=== PATIENT | male | born 1990 | race Caucasian/White ===

== ENCOUNTER 2016-08-16 21:18 | Emergency (ER) | payer SELFPAY ==
[~2016-08-16] VITALS: Ht 172.7 cm; Wt 102.1 kg
[~2016-08-16 21:18] MED LIST: ALBU17AE23 IH; ALBU8.5H2 IH; DIVA250T2 PO; DOXY100C2 PO; FLUT1DIS26 IH; LVB125NB3 IH; PRD50T PO
--- NOTE | 2016-08-16 21:30 | ED General ---
General Stated Complaint: ETOH Source of Information: EMS Exam Limitations: No Limitations History of Present Illness Time Seen by Provider: 21:25 Initial Comments To ER per EMS after [place] police called them as the patient was found [address] [address] [place] [place] wearing only his underwear and with a bloody nose. Patient reported that he been drinking 4 beers tonight and several shots of vodka and was looking for night crawlers in the rain when he tripped and fell striking his nose. He also reports that [facility] held for several days for drug charges. Patient states that tonight he was walking down the street because he has a "broken heart because he has So much love that he wants to show but doesn't know how to show it" and he was also looking for night collars in the rainsso that he could go fishing. He denies any thoughts of self-harm. He states that he's been on several psychiatric medications but stopped them yesterday when he was released from sn[facility]. Reports a history of various mental illnesses such as PTSD, paranoid schizophrenia, bipolar disorder. His medications included omeprazole, Effexor, Zyprexa, several others that he states totaled 7 medications. He also states that he is homeless and has nowhere to go. Timing/Duration: Other Severity: Moderate (unknown) Associated Systoms: Denies Symptoms Allergies and Home Medications Allergies Coded Allergies: No Known Drug Allergies (Unverified , 08/16/16) Home Medications Divalproex Sodium 250 Mg Tablet.dr, 250 MG PO BID, #60 Ref 0 Prescribed by: ADY HURT on 12/23/14 1236 Constitutional: see HPI EENTM: see HPI Respiratory: no symptoms reported Genitourinary: no symptoms reported Musculoskeletal: no symptoms reported Skin: no symptoms reported Psychiatric/Neurological: No Symptoms Reported Hematologic/Lymphatic: No Symptoms Reported Immunological/Allergic: no symptoms reported Past Qlokvdz-Sqmwzb-Cejxwa Hx Patient Social History Type Used: Cigarettes Recent Hopitalizations: No Seasonal Allergies Seasonal Allergies: No Surgeries HX Surgeries: Yes Surgeries: Adenoidectomy, Tonsillectomy Respiratory Hx Respiratory Disorders: Yes Respiratory Disorders: Asthma, COPD Cardiovascular Hx Cardiac Disorders: Yes Cardiac Disorders: Heart Murmur Neurological Hx Neurological Disorders: Yes Neurological Disorders: Seizure Disorder Genitourinary Hx Genitourinary Disorders: No Gastrointestinal Hx Gastrointestinal Disorders: No Musculoskeletal Hx Musculoskeletal Disorders: No Endocrine Hx Endocrine Disorders: No HEENT HX ENT Disorders: No Cancer Hx Cancer: No Psychosocial Hx Psychiatric Problems: Yes Behavioral Health Disorders: Anxiety, Bipolar, Schizophrenia, Depression Integumentary HX Skin/Integumentary Disorder: Yes Skin/Integumentary Disorders: Recent Skin Changes Blood Transfusions Hx Blood Disorders: No Adverse Reaction to a Blood Tr: No Family Medical History Significant Family History: No Pertinent Family Hx Physical Exam Vital Signs Vital Sign - Last 12Hours 08/16/16 21:42 Temp 97.6 Pulse 86 Resp 14 B/P (MAP) 126/82 Pulse Ox 98 O2 Delivery Room Air Capillary Refill : General Appearance: No Apparent Distress, WD/WN Eyes: Bilateral Eye EOMI, Bilateral Eye Normal Inspection, Bilateral Eye PERRL HEENT: PERRL/EOMI, TMs Normal, Other (edentulous, dried blood in nare, no septal hematoma or active bleeding. ) Neck: Full Range of Motion, Normal Inspection Respiratory: Normal Breath Sounds, No Accessory Muscle Use, No Respiratory Distress Cardiovascular: Regular Rate, Rhythm, Normal Peripheral Pulses Gastrointestinal: Non Tender, Soft Extremity: Normal Capillary Refill, Normal Inspection Neurologic/Psychiatric: Alert, Other (cooperative, somber, answers questions appropriately.) Skin: Normal Color, Warm/Dry Progress/Results/Core Measures Results/Orders Lab Results Laboratory Tests Test 08/16/16 21:28 08/16/16 21:40 Range/Units White Blood Count 7.5 4.3-11.0 10^3/uL Red Blood Count 4.51 4.35-5.85 10^6/uL Hemoglobin 13.9 13.3-17.7 G/DL Hematocrit 40 40-54 % Mean Corpuscular Volume 88 80-99 FL Mean Corpuscular Hemoglobin 31 25-34 PG Mean Corpuscular Hemoglobin Concent 35 32-36 G/DL Red Cell Distribution Width 13.0 10.0-14.5 % Platelet Count 202 130-400 10^3/uL Mean Platelet Volume 8.9 7.4-10.4 FL Neutrophils (%) (Auto) 70 42-75 % Lymphocytes (%) (Auto) 18 12-44 % Monocytes (%) (Auto) 12 0-12 % Eosinophils (%) (Auto) 1 0-10 % Basophils (%) (Auto) 0 0-10 % Neutrophils # (Auto) 5.2 1.8-7.8 X 10^3 Lymphocytes # (Auto) 1.3 1.0-4.0 X 10^3 Monocytes # (Auto) 0.9 0.0-1.0 X 10^3 Eosinophils # (Auto) 0.0 0.0-0.3 10^3/uL Basophils # (Auto) 0.0 0.0-0.1 10^3/uL Sodium Level 142 135-145 MMOL/L Potassium Level 3.5 L 3.6-5.0 MMOL/L Chloride Level 108 H 98-107 MMOL/L Carbon Dioxide Level 22 21-32 MMOL/L Anion Gap 12 5-14 MMOL/L Blood Urea Nitrogen 14 7-18 MG/DL Creatinine 0.84 0.60-1.30 MG/DL Estimat Glomerular Filtration Rate > 60 BUN/Creatinine Ratio 17 Glucose Level 99 70-105 MG/DL Calcium Level 9.5 8.5-10.1 MG/DL Total Bilirubin 1.3 H 0.1-1.0 MG/DL Aspartate Amino Transf (AST/SGOT) 122 H 5-34 U/L Alanine Aminotransferase (ALT/SGPT) 293 H 0-55 U/L Alkaline Phosphatase 87 40-136 U/L Total Protein 6.5 6.4-8.2 G/DL Albumin 4.3 3.2-4.5 G/DL Salicylates Level < 5.0 L 5.0-20.0 MG/DL Acetaminophen Level < 10 L 10-30 UG/ML Serum Alcohol 38 H <10 MG/DL Urine Color YELLOW Urine Clarity CLEAR Urine pH 5 5-9 Urine Specific [place] 1.025 H 1.016-1.022 Urine Protein 2+ H NEGATIVE Urine Glucose (UA) NEGATIVE NEGATIVE Urine Ketones 2+ H NEGATIVE Urine Nitrite NEGATIVE NEGATIVE Urine Bilirubin NEGATIVE NEGATIVE Urine Urobilinogen 4 H NORMAL MG/DL Urine Leukocyte Esterase NEGATIVE NEGATIVE Urine RBC (Auto) NEGATIVE NEGATIVE Urine RBC NONE /HPF Urine WBC RARE /HPF Urine Crystals NONE /LPF Urine Bacteria NEGATIVE /HPF Urine Casts NONE /LPF Urine Mucus NEGATIVE /LPF Urine Culture Indicated NO My Orders Orders - PATRICE PIERRE APRN Cbc With Automated Diff (08/16/16 21:23) Comprehensive Metabolic Panel (08/16/16 21:23) Ua Culture If Indicated (08/16/16 21:23) Drug Screen Stat (Urine) (08/16/16 21:23) Alcohol (08/16/16 21:23) Salicylate (08/16/16 21:23) Acetaminophen (08/16/16 21:23) Ekg Tracing (08/16/16 21:23) Ct Head/Face/Cervical Wo (08/16/16 21:23) Ns Iv 1000 Ml (Sodium Chloride 0.9%) (08/16/16 22:15) Vital Signs/I&O Vital Sign - Last 12Hours 08/16/16 21:42 Temp 97.6 Pulse 86 Resp 14 B/P (MAP) 126/82 Pulse Ox 98 O2 Delivery Room Air Departure Communication Progress Notes I called the patient's listed next of kin Paras who states he will not come get the patient because the patient has a drug problem and he doesn't want Ady in his house while he is not there. His other contact Elizabeth has a disconnected phone number. [id number]-patient has remained alert, sitting upright in bed, pleasant and talkative during his ER stay. Conversation is appropriate. No suicidal or homicidal statements. Impression Impression: Primary Impression: Elevated liver enzymes Additional Impression: Substance abuse Disposition: 01 HOME, SELF-CARE Condition: Stable Departure-Patient Inst. Decision time for Depature: 22:07 Referrals: RONAL FORBES,LOCAL PHYSICIAN (PCP) Primary Care Physician Patient Instructions: ALCOHOL AND SUBSTANCE ABUSE Add. Discharge Instructions: 1. You should follow-up with Dr. Forbes or one of her partners at [facility] to further evaluate the cause of your elevated liver enzymes. Return to ER for any concerns PATRICE PIERRE APRN August 16, 2016 21:30
[2016-08-16 21:34] LABS: BASOPHILS % (AUTO) 0 % (0-10); EOSINOPHILS % (AUTO) 1 % (0-10); LYMPHOCYTES # (AUTO) 1.3 X 10^3 (1.0-4.0); LYMPHOCYTES % (AUTO) 18 % (12-44); MEAN CORPUSCULAR HEMOGLOBIN 31 PG (25-34); MEAN CORPUSCULAR HGB CONC 35 G/DL (32-36); MEAN CORPUSCULAR VOLUME 88 FL (80-99); MEAN PLATELET VOLUME 8.9 FL (7.4-10.4); MONOCYTES # (AUTO) 0.9 X 10^3 (0.0-1.0); MONOCYTES % (AUTO) 12 % (0-12); NEUTROPHILS # (AUTO) 5.2 X 10^3 (1.8-7.8); NEUTROPHILS % (AUTO) 70 % (42-75); PLATELET COUNT 202 10^3/uL (130-400); RED BLOOD COUNT 4.51 10^6/uL (4.35-5.85); WHITE BLOOD COUNT 7.5 10^3/uL (4.3-11.0)
[2016-08-16 21:52] LABS: BILIRUBIN,URINE NEGATIVE (NEGATIVE); KETONES,URINE 2+ (NEGATIVE); LEUKOCYTE ESTERASE ,URINE NEGATIVE (NEGATIVE); NITRITE,URINE NEGATIVE (NEGATIVE); PH,URINE 5 (5-9); PROTEIN,URINE 2+ (NEGATIVE); UROBILINOGEN,URINE 4 MG/DL (NORMAL)
[2016-08-16 22:01] LABS: ALANINE AMINOTRANSFERASE 293 U/L (0-55); ALBUMIN 4.3 G/DL (3.2-4.5); ALCOHOL 38 MG/DL (<10); ANION GAP 12 MMOL/L (5-14); ASPARTATE AMINO TRANSFERASE 122 U/L (5-34); BILIRUBIN,TOTAL 1.3 MG/DL (0.1-1.0); BLOOD UREA NITROGEN 14 MG/DL (7-18); BUN/CREATININE RATIO 17; CALCIUM 9.5 MG/DL (8.5-10.1); CARBON DIOXIDE 22 MMOL/L (21-32); CHLORIDE 108 MMOL/L (98-107); CREATININE SERUM 0.84 MG/DL (0.60-1.30); GFR ESTIMATED > 60; GLUCOSE 99 MG/DL (70-105); POTASSIUM 3.5 MMOL/L (3.6-5.0); SALICYLATE < 5.0 MG/DL (5.0-20.0); SODIUM 142 MMOL/L (135-145); TOTAL PROTEIN 6.5 G/DL (6.4-8.2)
[2016-08-16 22:03] LABS: ACETAMINOPHEN < 10 UG/ML (10-30)
[2016-08-16 22:04] LABS: WBC,URINE RARE /HPF
[2016-08-16] MEDS ORDERED: NS IV 1000 ML 1,000 ML IV SCH (22:15)
--- NOTE | 2016-08-16 22:32 | Diagnostic Imaging Report ---
Clinical indication: Patient with bloody nose. EtOH. No history. Exam: Axial Head CT without IV contrast. Axial Maxillofacial CT scan without IV contrast with sagittal and coronal reformations. Axial CT scan of the cervical spine with sagittal and coronal reformations. Comparison: CT scan of the head, face and cervical spine dated 11/03/2010. Findings: Head CT: There is no evidence of acute cerebral infarct, intracranial hemorrhage, or gross mass effect. There is normal jonas-white matter distinction. The brain parenchymal volume appears appropriate for patient's age. There is no significant midline shift or herniation. There is no evidence of hydrocephalus. The basal cisterns are unremarkable. Skull and maxillofacial CT: There is motion artifact which limits evaluation of the maxillofacial CT scan. There is no gross maxillofacial or skull fracture. The skull, extracranial soft tissue, and orbits are unremarkable. There is minimal mucosal thickening involving both maxillary sinuses and ethmoid sinus. Cervical spine CT: There is no evidence of acute cervical spine fracture or dislocation. There is a small chronic calcification seen anterior to the C4-C5 intervertebral level. There are small anterior spurs at the C4-C5 level. The vertebral disc heights are within normal limits. There is no significant central spinal canal or neural foramen narrowing. There is no prevertebral soft tissue swelling. Lung apices are unremarkable. The neck soft tissue structures show no significant abnormality. Impression: 1: There is no evidence of acute intracranial process. 2: There is no acute skull or maxillofacial fracture. 3: Mild cervical spine degenerative disease with no acute fracture or dislocation. Dictated by: Dictated on workstation # [id number]
[2016-08-16 22:56] VITALS: BP 111/78
== END 2016-08-16 22:59 | disposition home or self-care (01) ==
LOC: EDUNIT# 21:18 → ER 21:19
DX: R74.8 Abnormal levels of other serum enzymes (principal); F19.10 Other psychoactive substance abuse, uncomplicated; F20.9 Schizophrenia, unspecified; F31.9 Bipolar disorder, unspecified; Z79.899 Other long term (current) drug therapy; Z59.0 Homelessness; Z91.19 Patient's noncompliance with other medical treatment and regimen
CPT/HCPCS: 36415; 70450; 70486; 72125; 80053; 80306; 80320; 80329; 81000; 85025; 93005

== ENCOUNTER 2016-09-07 21:50 | Emergency (ER) | payer SELFPAY ==
[~2016-09-07] VITALS: Ht 175.3 cm; Wt 88.5 kg
[2016-09-07] MEDS ORDERED: NS IV 1000 ML 1,000 ML IV ONE (22:04)
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
[2016-09-07 22:30] LABS: BASOPHILS # (AUTO) 0.1 10^3/uL (0.0-0.1); BASOPHILS % (AUTO) 1 % (0-10); EOSINOPHILS # (AUTO) 0.1 10^3/uL (0.0-0.3); EOSINOPHILS % (AUTO) 2 % (0-10); LYMPHOCYTES # (AUTO) 1.7 X 10^3 (1.0-4.0); LYMPHOCYTES % (AUTO) 29 % (12-44); MEAN CORPUSCULAR HEMOGLOBIN 31 PG (25-34); MEAN CORPUSCULAR HGB CONC 33 G/DL (32-36); MEAN CORPUSCULAR VOLUME 94 FL (80-99); MEAN PLATELET VOLUME 8.7 FL (7.4-10.4); MONOCYTES # (AUTO) 0.8 X 10^3 (0.0-1.0); MONOCYTES % (AUTO) 13 % (0-12); NEUTROPHILS # (AUTO) 3.4 X 10^3 (1.8-7.8); NEUTROPHILS % (AUTO) 55 % (42-75); PLATELET COUNT 237 10^3/uL (130-400); RED BLOOD COUNT 4.66 10^6/uL (4.35-5.85); RED CELL DISTRIBUTION WIDTH 14.5 % (10.0-14.5); WHITE BLOOD COUNT 6.1 10^3/uL (4.3-11.0)
[2016-09-07 22:44] LABS: ALANINE AMINOTRANSFERASE 533 U/L (0-55); ALCOHOL 103 MG/DL (<10); ANION GAP 12 MMOL/L (5-14); ASPARTATE AMINO TRANSFERASE 313 U/L (5-34); BILIRUBIN,TOTAL 0.5 MG/DL (0.1-1.0); BLOOD UREA NITROGEN 11 MG/DL (7-18); BUN/CREATININE RATIO 14; CARBON DIOXIDE 21 MMOL/L (21-32); CHLORIDE 110 MMOL/L (98-107); CREATININE SERUM 0.76 MG/DL (0.60-1.30); GFR ESTIMATED > 60; GLUCOSE 107 MG/DL (70-105); SALICYLATE < 5.0 MG/DL (5.0-20.0); SODIUM 143 MMOL/L (135-145); TOTAL PROTEIN 6.8 G/DL (6.4-8.2)
[2016-09-07 22:45] LABS: ACETAMINOPHEN < 10 UG/ML (10-30)
[2016-09-08 00:17] LABS: BILIRUBIN,URINE NEGATIVE (NEGATIVE); KETONES,URINE NEGATIVE (NEGATIVE); LEUKOCYTE ESTERASE ,URINE NEGATIVE (NEGATIVE); NITRITE,URINE NEGATIVE (NEGATIVE); PH,URINE 5 (5-9); PROTEIN,URINE NEGATIVE (NEGATIVE); UROBILINOGEN,URINE NORMAL (NORMAL)
[2016-09-08 00:27] LABS: SQUAMOUS EPITHELIAL CELL,UR RARE /HPF
[2016-09-08 11:19] VITALS: BP 139/88
== END 2016-09-08 11:19 ==
LOC: EDUNIT# 21:50 → ER 21:51
DX: R45.851 Suicidal ideations (principal); R74.0 Nonspecific elevation of levels of transaminase and lactic acid dehydrogenase [LDH]; J45.909 Unspecified asthma, uncomplicated; G40.909 Epilepsy, unspecified, not intractable, without status epilepticus; F12.10 Cannabis abuse, uncomplicated; F15.10 Other stimulant abuse, uncomplicated; F17.210 Nicotine dependence, cigarettes, uncomplicated
CPT/HCPCS: 36415; 80053; 80306; 80320; 80329; 81000; 85025; 93005

== ENCOUNTER 2021-09-28 04:48 | Emergency (ER) | payer SELFPAY ==
[~2021-09-28] VITALS: Ht 177.8 cm; Wt 95.4 kg
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
[2021-09-28 05:19] VITALS: BP 120/89
== END 2021-09-28 05:14 | disposition home or self-care (01) ==
LOC: EDUNIT# 04:48 → ER 04:53
DX: S90.421A Blister (nonthermal), right great toe, initial encounter (principal); G89.29 Other chronic pain; M79.671 Pain in right foot; M79.672 Pain in left foot; F15.10 Other stimulant abuse, uncomplicated; F17.210 Nicotine dependence, cigarettes, uncomplicated; Z28.310 Unvaccinated for COVID-19; X58.XXXA Exposure to other specified factors, initial encounter
CPT/HCPCS: 99281